=== PATIENT | female | born 1965 | race Hispanic/Latino ===

== ENCOUNTER 2024-07-01 10:41 | Emergency (ER) | payer OTHER ==
[~2024-07-01] VITALS: Ht 160 cm; Wt 70.8 kg
[2024-07-01 11:23] VITALS: PULSE 80; RESP 15; TEMP 97.3; O2SAT 99
== END 2024-07-01 12:19 | disposition home or self-care (01) ==
LOC: ER 11:08
DX: S93.491A Sprain of other ligament of right ankle, initial encounter (principal); M79.671 Pain in right foot; X50.1XXA Overexertion from prolonged static or awkward postures, initial encounter; Y92.89 Other specified places as the place of occurrence of the external cause
CPT/HCPCS: 99282

== ENCOUNTER → 2025-04-14 | Day surgery (SDC) | payer OTHER ==
[~2025-04-14] MED LIST: ATORVASTATIN CA20 MG PO; B-121000 MC2; D3-5000125 MCG; FENTANYL CITRATE/PF 100MCG/2 ML INJ ONE; GLUCAGON FOR INJ 1 MG VIAL ONE; HYOSCYAMINE SULFATE 0.5 MG/ML INJ ONE; LIDOCAINE HCL 2% LOCAL INJ 5 ML SDV VIAL INJ ONE; LOSARTAN POTASS25 MG PO; METFORMIN HCL850 MG PO; MULTI-VITAMIN1 EACH PO; ONDANSETRON HCL INJ 2MG/ML 2ML 2 MG/ML VIAL ONE; PROPOFOL IV EMULSION 50 ML IV ONE
[2025-04-14] MEDS: LACTATED RINGER'S 1,000 ML ONE (09:35)
[2025-04-14 09:48] VITALS: TEMP 97.3
[2025-04-14 10:15] VITALS: BP 143/75; PULSE 76; RESP 16; O2SAT 97
== END | disposition home or self-care (01) ==
LOC: OR 06:59
PROVIDERS: ATTEND Internal Medicine Gastroenterology
DX: Z12.11 Encounter for screening for malignant neoplasm of colon (principal); K57.30 Diverticulosis of large intestine without perforation or abscess without bleeding; K64.8 Other hemorrhoids; K21.9 Gastro-esophageal reflux disease without esophagitis; Z71.3 Dietary counseling and surveillance; E11.9 Type 2 diabetes mellitus without complications; I10 Essential (primary) hypertension; Z71.89 Other specified counseling; E78.5 Hyperlipidemia, unspecified; Z01.810 Encounter for preprocedural cardiovascular examination; Z79.84 Long term (current) use of oral hypoglycemic drugs; Z79.899 Other long term (current) drug therapy
CPT/HCPCS: 36415; 45378; 82948; 93005; J1610; J1980; J2003; J2405; J2704; J3010; J7121